=== PATIENT | female | born 1960 | race Caucasian/White ===

== ENCOUNTER → 2016-02-25 | Outpatient (CLI) | payer OTHER ==
[~2016-02-25] MED LIST: ACTOS15 MG PO; ACTOS45 M1 PO; ALDACTONE100 MG PO; AUGMENTIN 875875 MG PO; CYCLOBENZAPRINE10 MG PO; DIFLUCAN150 MG PO; FLEXERIL5 MG PO; HYDROCODONE BIT1 T11 PO; IBU800 M1 PO; IBUPROFEN 30 M800 MG PO; KCL; LASIX40 MG PO; MEDROL DOSEPAK4 MG PO; PREDNICOT10 MG PO; PREDNISONE10 MG PO; PREDNISONE20 M1 PO; PROAIR HFA8.5 GM IH; SYNTHROID0.175 MG PO; TESSALON PERLE100 M1 PO; TRAD5TAB1 PO; TRAZODONE50 MG PO; VIBRAMYCIN100 MG PO; VICODIN 5/500 505 MG PO; XANAX0.25 MG PO; ZANTAC150 MG PO; ZITHROMAX Z PA250 MG PO; ZITHROMAX250 MG PO
== END | disposition home or self-care (01) ==
LOC: MAMMO 11:38
DX: Z12.31 Encounter for screening mammogram for malignant neoplasm of breast (principal)

== ENCOUNTER → 2016-05-18 | Outpatient (CLI) | payer OTHER ==
[2016-05-18 09:56] LABS: ALBUMIN 3.4 gm/dl (3.1-4.5); ALKALINE PHOSPHATASE 89 U/L (45-117); BILIRUBIN, DIRECT < 0.1 mg/dL (0.0-0.2); BILIRUBIN, TOTAL 0.3 mg/dl (0.2-1.0); BUN 26 mg/dl (7-24); CARBON DIOXIDE 30 mmol/L (21-32); CHLORIDE 107 mmol/L (98-107); CHOLESTEROL 167 mg/dL (<200); EST GLOM FILT AFRICAN AMERICAN > 60 ml/min; GLUCOSE 123 mg/dL (65-99); HDL CHOLESTEROL 53 mg/dl (40-60); LDL CHOLESTEROL 85 mg/dL (9-159); POTASSIUM 4.4 mmol/L (3.5-5.1); SGOT/AST 11 IU/L (3-35); SGPT/ALT 29 U/L (12-78); SODIUM 143 mmol/L (136-145); TOTAL PROTEIN 7.7 gm/dL (6.4-8.2); TRIGLYCERIDES 144 mg/dl (<150); VLDL CHOLESTEROL 29 mg/dL (6-40)
[2016-05-18 10:15] LABS: HEMOGLOBIN A1c 7.5 % (4.8-5.6)
== END | disposition home or self-care (01) ==
LOC: LAB 09:02
PROVIDERS: Internal Medicine
DX: E11.9 Type 2 diabetes mellitus without complications (principal); E03.8 Other specified hypothyroidism; E78.4 Other hyperlipidemia; Z79.1 Long term (current) use of non-steroidal anti-inflammatories (NSAID)

== ENCOUNTER → 2016-08-26 | Outpatient (CLI) | payer OTHER ==
[2016-08-26 10:25] LABS: BUN 27 mg/dl (7-24); CARBON DIOXIDE 30 mmol/L (21-32); CHLORIDE 105 mmol/L (98-107); EST GLOM FILT AFRICAN AMERICAN > 60 ml/min; GLUCOSE 127 mg/dL (65-99); POTASSIUM 3.8 mmol/L (3.5-5.1); SODIUM 143 mmol/L (136-145)
[2016-08-26 10:31] LABS: FREE T4 1.23 ng/dl (0.76-1.46)
[2016-08-26 11:22] LABS: HEMOGLOBIN A1c 7.5 % (4.8-5.6)
== END | disposition home or self-care (01) ==
LOC: LAB 09:23
PROVIDERS: Internal Medicine
DX: E11.9 Type 2 diabetes mellitus without complications (principal); E03.8 Other specified hypothyroidism; R60.0 Localized edema

== ENCOUNTER → 2016-09-30 | Day surgery (SDC) | payer OTHER ==
[~2016-09-30] VITALS: Ht 154.9 cm; Wt 120.2 kg
[~2016-09-30] MED LIST changes: +AMARYL1 M1 PO
--- NOTE | ~2016-09-30 | O ---
[place], [place] OPERATIVE NOTE NAME: DANIELLE ROCHE UNIT #: [id number] ROOM: DOCTOR: JUSTICE GRAY MD BIRTHDATE: [birth year] DOS: 09/30/2016 INDICATIONS: This is a 69-year-old patient who presented with chief complaint of history of colonic polyp. ALLERGIES: No known medication. FAMILY HISTORY: Father with colonic CA. PAST SURGICAL HISTORY: Cholecystectomy. PAST MEDICAL HISTORY: Hypothyroidism, anxiety. PROCEDURE: Today's procedure part of investigation is colonoscopy plus piecemeal polypectomy. PREMEDICATION: Versed and Diprivan. SCOPE: Olympus folding colonoscope 10L video. REPORT: After putting the patient in the left lateral position and after application of lubricant to the scope, the scope was introduced. Thereafter, under direct visualization, I advanced through the length of colon without difficulty. Evidence of diverticulosis coli was identified. Two polypoid lesions and rectal pouch with piecemeal polypectomy was removed and photographed. Ileocecal valve was defined. Appendiceal orifice identified, although there was some retained stool; however, we were able to complete colonoscopy. The patient extubated, tolerated procedure well. IMPRESSION: Diverticulosis coli and presence of two sessile polypoid lesions and rectal pouch. PLAN AND DISCUSSION: High fiber fruit diet. ACTIVITY: Ad eusebio. No fatty food and follow up routinely with you in office, p.r.n. visit with us in [facility]. Thank you very much indeed for your kind referral. [place], [place] OPERATIVE NOTE NAME: DANIELLE ROCHE UNIT #: [id number] ROOM: DOCTOR: JUSTICE GRAY MD BIRTHDATE: [birth year] JUSTICE GRAY MD CM:OPRECORD:OPERATIVE NOTE 1200 [id number] JUSTICE GRAY MD 09/30/16 1358 interface
[2016-09-30 10:38] VITALS: BP 149/60
[2016-09-30 11:53] VITALS: BP 124/63
[2016-09-30 12:08] VITALS: BP 129/76
[2016-09-30 12:24] VITALS: BP 124/63
== END | disposition home or self-care (01) ==
LOC: SDC 09-28 10:15
DX: Z09 Encounter for follow-up examination after completed treatment for conditions other than malignant neoplasm (principal); K62.1 Rectal polyp; Z80.0 Family history of malignant neoplasm of digestive organs; K57.30 Diverticulosis of large intestine without perforation or abscess without bleeding; E03.9 Hypothyroidism, unspecified; F41.9 Anxiety disorder, unspecified; E11.9 Type 2 diabetes mellitus without complications; K21.9 Gastro-esophageal reflux disease without esophagitis; J45.909 Unspecified asthma, uncomplicated; M79.7 Fibromyalgia; E66.01 Morbid (severe) obesity due to excess calories; Z68.43 Body mass index [BMI] 50.0-59.9, adult

== ENCOUNTER → 2016-12-28 | Outpatient (CLI) | payer OTHER ==
[2016-12-28 10:35] LABS: ALBUMIN 3.4 gm/dl (3.1-4.5); BILIRUBIN, DIRECT 0.1 mg/dL (0.0-0.2); BUN 19 mg/dl (7-24); CHLORIDE 102 mmol/L (98-107); CHOLESTEROL 158 mg/dL (<200); CREATININE 0.93 mg/dL (0.55-1.02); POTASSIUM 4.3 mmol/L (3.5-5.1); SGOT/AST 12 IU/L (3-35); SGPT/ALT 23 U/L (12-78); SODIUM 139 mmol/L (136-145); TOTAL PROTEIN 7.7 gm/dL (6.4-8.2); TRIGLYCERIDES 102 mg/dl (<150); VLDL CHOLESTEROL 20 mg/dL (6-40)
[2016-12-28 10:41] LABS: ALKALINE PHOSPHATASE 93 U/L (45-117); FREE T4 1.46 ng/dl (0.76-1.46); HDL CHOLESTEROL 52 mg/dl (40-60); LDL CHOLESTEROL 86 mg/dL (9-159); THYROID STIM HORMONE (HS) 0.524 uIU/ml (0.358-4.75)
== END | disposition home or self-care (01) ==
LOC: LAB 09:27
PROVIDERS: Internal Medicine
DX: E11.9 Type 2 diabetes mellitus without complications (principal); E03.8 Other specified hypothyroidism; E78.4 Other hyperlipidemia; Z79.1 Long term (current) use of non-steroidal anti-inflammatories (NSAID)

== ENCOUNTER → 2017-02-25 | Outpatient (CLI) | payer OTHER | END | disposition home or self-care (01) | LOC: MAMMO 10:00 | DX: Z12.31 Encounter for screening mammogram for malignant neoplasm of breast (principal) ==

== ENCOUNTER → 2017-08-25 | Outpatient (CLI) | payer OTHER | END | disposition home or self-care (01) | LOC: CARD 08-24 08:03 | DX: I51.7 Cardiomegaly (principal); R06.01 Orthopnea; R60.0 Localized edema ==

== ENCOUNTER → 2018-05-17 | Outpatient (CLI) | payer OTHER | END | disposition home or self-care (01) | LOC: RAD 11:22 | DX: M19.071 Primary osteoarthritis, right ankle and foot (principal); M25.78 Osteophyte, vertebrae; M54.5 Low back pain; M54.6 Pain in thoracic spine ==

== ENCOUNTER 2019-04-15 12:17 | Emergency (ER) | payer OTHER ==
[~2019-04-15] VITALS: Ht 154.9 cm; Wt 113.4 kg
== END 2019-04-15 13:59 | disposition home or self-care (01) ==
LOC: ED 12:17
DX: S40.011A Contusion of right shoulder, initial encounter (principal); S60.222A Contusion of left hand, initial encounter; Z79.899 Other long term (current) drug therapy; Z79.2 Long term (current) use of antibiotics; Z90.49 Acquired absence of other specified parts of digestive tract; W01.0XXA Fall on same level from slipping, tripping and stumbling without subsequent striking against object, initial encounter; Y93.89 Activity, other specified; Y92.89 Other specified places as the place of occurrence of the external cause; Y99.8 Other external cause status

== ENCOUNTER → 2019-11-27 | Outpatient (CLI) | payer OTHER | END | disposition home or self-care (01) | LOC: MAMMO 06:53 | PROVIDERS: ATTEND Nurse Practitioner Primary Care | DX: Z12.31 Encounter for screening mammogram for malignant neoplasm of breast (principal); N64.89 Other specified disorders of breast ==

== ENCOUNTER → 2020-05-21 | Outpatient (CLI) | payer OTHER | END | disposition home or self-care (01) | LOC: RAD 13:08 | PROVIDERS: ATTEND Nurse Practitioner Primary Care | DX: M85.89 Other specified disorders of bone density and structure, multiple sites (principal); Z78.0 Asymptomatic menopausal state ==

== ENCOUNTER 2020-08-14 13:09 | Inpatient (IN) | payer OTHER ==
[~2020-08-14] VITALS: Ht 154.9 cm; Wt 107.6 kg
[2020-08-14 13:15] VITALS: BP 145/69
[2020-08-14 14:23] LABS: BASO # 0.1 10*3/uL (0.0-0.1); BASO % 0.4 % (0.0-1.0); EOS # 0.3 10*3/uL (0.0-0.4); EOS % 2.2 % (1.0-4.0); HEMATOCRIT 44.5 % (37.0-47.0); LYMPH # 2.6 10*3/uL (1.3-4.4); MEAN CELL VOLUME 89.5 fl (81.0-99.0); MEAN CORPUSCULAR HGB 28.2 pg (27.0-31.0); MEAN CORPUSCULAR HGB CONC 31.5 g/dl (33.0-37.0); MONO # 0.7 10*3/uL (0.1-1.0); MONO % 4.9 % (3.0-9.0); NEUT # 9.4 10*3/uL (2.3-7.9); NEUT % 71.8 % (47.0-73.0); PLATELET COUNT AUTOMATED 279 10*3/uL (130-400); RED BLOOD COUNT 4.97 10*6/uL (4.10-5.10); RED CELL DISTRI WIDTH 13.6 % (0-14.5); WHITE BLOOD COUNT 13.2 10*3/uL (4.8-10.8)
[2020-08-14 14:35] LABS: ACT PARTIAL THROMBO TIME 27.4 SECONDS (20.0-32.1)
[2020-08-14 14:58] LABS: ALBUMIN 2.9 gm/dl (3.1-4.5); ALKALINE PHOSPHATASE 91 U/L (45-117); BUN 14 mg/dl (7-24); CHLORIDE 100 mmol/L (98-107); CREATININE 0.71 mg/dL (0.55-1.02); POTASSIUM 3.6 mmol/L (3.5-5.1); SGOT/AST 14 IU/L (3-35); SGPT/ALT 26 U/L (12-78); SODIUM 132 mmol/L (136-145); TOTAL PROTEIN 7.6 gm/dL (6.4-8.2)
[2020-08-14 14:59] LABS: TROPONIN I < 0.015 ng/ml (<0.045)
[2020-08-14 15:15] VITALS: BP 144/78
[2020-08-14] MEDS ORDERED: OZEMPIC0.25 MG/01 SQ (18:02)
[2020-08-14] MEDS ORDERED: ARMODAFINIL50 MG PO (18:02)
[2020-08-14] MEDS ORDERED: AMITRIPTYLINE H10 M1 PO (18:03)
[2020-08-14] MEDS ORDERED: HYDROCHLOROTH12.5 M2 PO (18:03)
[2020-08-14] MEDS ORDERED: PANTOPRAZOLE SO40 MG PO (18:04)
[2020-08-14] MEDS ORDERED: STEGLATRO15 MG PO (18:05)
[2020-08-14] MEDS ORDERED: VITAMIN D350 MC2 PO (18:05)
[2020-08-14] MEDS ORDERED: ATORVASTATIN CA10 M1 PO (18:07)
[2020-08-14 18:20] VITALS: BP 148/76
[2020-08-14 18:56] VITALS: BP 112/58
[2020-08-14 20:30] VITALS: BP 128/59
[2020-08-15] VITALS: BP 105/37
[2020-08-15 05:50] LABS: ALBUMIN 2.5 gm/dl (3.1-4.5); BUN 10 mg/dl (7-24); CHLORIDE 105 mmol/L (98-107); CREATININE 0.51 mg/dL (0.55-1.02); POTASSIUM 3.8 mmol/L (3.5-5.1); SGOT/AST 13 IU/L (3-35); SGPT/ALT 20 U/L (12-78); SODIUM 136 mmol/L (136-145)
[2020-08-15 05:52] LABS: ALKALINE PHOSPHATASE 73 U/L (45-117); TOTAL PROTEIN 6.5 gm/dL (6.4-8.2)
[2020-08-15 05:58] LABS: FREE T4 1.45 ng/dl (0.76-1.46); THYROID STIM HORMONE (HS) 0.376 uIU/ml (0.358-4.75)
[2020-08-15 06:10] LABS: ACT PARTIAL THROMBO TIME 31.3 SECONDS (20.0-32.1)
[2020-08-15 06:28] LABS: BASO # 0.1 10*3/uL (0.0-0.1); BASO % 0.5 % (0.0-1.0); EOS # 0.3 10*3/uL (0.0-0.4); EOS % 2.4 % (1.0-4.0); HEMATOCRIT 42.8 % (37.0-47.0); LYMPH # 2.8 10*3/uL (1.3-4.4); LYMPH % 24.5 % (27.0-41.0); MEAN CELL VOLUME 91.6 fl (81.0-99.0); MEAN CORPUSCULAR HGB 27.8 pg (27.0-31.0); MEAN CORPUSCULAR HGB CONC 30.4 g/dl (33.0-37.0); MEAN PLATELET VOLUME 10.8 fl (9.6-12.3); MONO # 0.7 10*3/uL (0.1-1.0); MONO % 5.7 % (3.0-9.0); NEUT # 7.6 10*3/uL (2.3-7.9); PLATELET COUNT AUTOMATED 266 10*3/uL (130-400); RED BLOOD COUNT 4.67 10*6/uL (4.10-5.10); WHITE BLOOD COUNT 11.5 10*3/uL (4.8-10.8)
[2020-08-15 07:49] VITALS: BP 108/52
[2020-08-15 12:00] VITALS: BP 106/54
[2020-08-15 16:00] VITALS: BP 116/60
[2020-08-15] MEDS ORDERED: XARELTO1 EACH PO (16:26)
== END 2020-08-15 18:00 | disposition home or self-care (01) | DRG 299 ==
LOC: ED 13:10 → 4E 17:29 → EDHOLD 17:29 → 4E 18:00
PROVIDERS: Internal Medicine; Physician Assistant; ADMIT Internal Medicine; ATTEND Internal Medicine
DX: I82.411 Acute embolism and thrombosis of right femoral vein (principal); I26.94 Multiple subsegmental thrombotic pulmonary emboli without acute cor pulmonale; E87.1 Hypo-osmolality and hyponatremia; E44.0 Moderate protein-calorie malnutrition; Z68.41 Body mass index [BMI] 40.0-44.9, adult; E11.9 Type 2 diabetes mellitus without complications; J45.909 Unspecified asthma, uncomplicated; D72.829 Elevated white blood cell count, unspecified; E11.65 Type 2 diabetes mellitus with hyperglycemia; E06.3 Autoimmune thyroiditis; I10 Essential (primary) hypertension; K21.9 Gastro-esophageal reflux disease without esophagitis; Z90.49 Acquired absence of other specified parts of digestive tract

== ENCOUNTER → 2020-09-09 | Outpatient (CLI) | payer OTHER ==
[~2020-09-09] MED LIST changes: +AMITRIPTYLINE H10 M1 PO; +ARMODAFINIL50 MG PO; +ATORVASTATIN CA10 M1 PO; +HYDROCHLOROTH12.5 M2 PO; +OZEMPIC0.25 MG/01 SQ; +PANTOPRAZOLE SO40 MG PO; +STEGLATRO15 MG PO; +VITAMIN D350 MC2 PO; +XARELTO1 EACH PO
== END | disposition home or self-care (01) ==
LOC: US 09:30
PROVIDERS: ATTEND Nurse Practitioner Primary Care
DX: I82.402 Acute embolism and thrombosis of unspecified deep veins of left lower extremity (principal); I26.94 Multiple subsegmental thrombotic pulmonary emboli without acute cor pulmonale

== ENCOUNTER → 2020-09-16 | Outpatient (CLI) | payer OTHER ==
[2020-09-16 10:34] LABS: CREATININE 0.86 mg/dL (0.55-1.02)
== END | disposition home or self-care (01) ==
LOC: LAB 09:49
PROVIDERS: ATTEND Nurse Practitioner Primary Care
DX: E11.65 Type 2 diabetes mellitus with hyperglycemia (principal)

== ENCOUNTER → 2020-09-17 | Outpatient (CLI) | payer OTHER | END | disposition home or self-care (01) | LOC: CT 00:21 | PROVIDERS: ATTEND Nurse Practitioner Primary Care | DX: K76.0 Fatty (change of) liver, not elsewhere classified (principal); K57.30 Diverticulosis of large intestine without perforation or abscess without bleeding; M48.061 Spinal stenosis, lumbar region without neurogenic claudication; E11.65 Type 2 diabetes mellitus with hyperglycemia; I10 Essential (primary) hypertension; I26.94 Multiple subsegmental thrombotic pulmonary emboli without acute cor pulmonale; M47.816 Spondylosis without myelopathy or radiculopathy, lumbar region; I82.402 Acute embolism and thrombosis of unspecified deep veins of left lower extremity ==

== ENCOUNTER → 2021-02-07 | Outpatient (CLI) | payer OTHER | LOC: RAD 11:01 | PROVIDERS: ATTEND Chiropractor Orthopedic | DX: M47.816 Spondylosis without myelopathy or radiculopathy, lumbar region (principal); M48.061 Spinal stenosis, lumbar region without neurogenic claudication; M25.552 Pain in left hip ==

== ENCOUNTER → 2021-05-08 | Outpatient (CLI) | payer OTHER | END | disposition home or self-care (01) | LOC: MAMMO 07:44 | PROVIDERS: ATTEND Specialist | DX: Z12.31 Encounter for screening mammogram for malignant neoplasm of breast (principal) ==

== ENCOUNTER → 2021-07-01 | Outpatient (CLI) | payer OTHER ==
[2021-07-01 11:36] LABS: BUN 17 mg/dl (7-24); CHLORIDE 103 mmol/L (98-107); CREATININE 0.81 mg/dL (0.55-1.02); SODIUM 139 mmol/L (136-145)
== END ==
LOC: LAB 10:45
PROVIDERS: ATTEND Nurse Practitioner Primary Care
DX: I10 Essential (primary) hypertension (principal)

== ENCOUNTER → 2021-07-03 | Outpatient (CLI) | payer OTHER | END | disposition home or self-care (01) | LOC: CT 08:29 | PROVIDERS: ATTEND Nurse Practitioner Primary Care | DX: I27.82 Chronic pulmonary embolism (principal); R06.09 Other forms of dyspnea ==

== ENCOUNTER → 2021-12-19 | Outpatient (CLI) | payer OTHER | LOC: US 15:13 | PROVIDERS: ATTEND Internal Medicine | DX: L03.116 Cellulitis of left lower limb (principal) ==

== ENCOUNTER → 2022-07-20 | Outpatient (CLI) | payer OTHER | END | disposition home or self-care (01) | LOC: MAMMO 09:22 | PROVIDERS: ATTEND Physician Assistant | DX: Z12.31 Encounter for screening mammogram for malignant neoplasm of breast (principal) ==

== ENCOUNTER → 2022-07-30 | Outpatient (CLI) | payer OTHER | END | disposition home or self-care (01) | LOC: US 14:30 | PROVIDERS: ATTEND Internal Medicine | DX: L03.90 Cellulitis, unspecified (principal); I80.9 Phlebitis and thrombophlebitis of unspecified site ==

== ENCOUNTER → 2023-07-21 | Outpatient (CLI) | payer OTHER | END | disposition home or self-care (01) | LOC: MAMMO 14:00 | PROVIDERS: ATTEND Physician Assistant | DX: Z12.31 Encounter for screening mammogram for malignant neoplasm of breast (principal) ==

== ENCOUNTER → 2023-08-25 | Outpatient (CLI) | payer OTHER | END | disposition home or self-care (01) | LOC: US 08:36 | PROVIDERS: ATTEND Nurse Practitioner | DX: D17.22 Benign lipomatous neoplasm of skin and subcutaneous tissue of left arm (principal) ==

== ENCOUNTER → 2024-08-21 | Outpatient (CLI) | payer OTHER | END | disposition home or self-care (01) | LOC: MAMMO 08:20 | PROVIDERS: ATTEND Physician Assistant | DX: Z12.31 Encounter for screening mammogram for malignant neoplasm of breast (principal); R92.313 Mammographic fatty tissue density, bilateral breasts ==

== ENCOUNTER → 2024-11-06 | Outpatient (CLI) | payer OTHER | END | disposition home or self-care (01) | LOC: US 17:33 | PROVIDERS: ATTEND Physician Assistant | DX: M79.661 Pain in right lower leg (principal) ==

== ENCOUNTER → 2025-01-11 | Outpatient (CLI) | payer MEDICARE | END | disposition home or self-care (01) | LOC: RAD 10:54 | PROVIDERS: ATTEND Physician Assistant | DX: M19.071 Primary osteoarthritis, right ankle and foot (principal); M25.571 Pain in right ankle and joints of right foot ==